=== PATIENT | male | born 1950 | race Caucasian/White ===

== ENCOUNTER 2023-08-03 21:53 | Observation (INO) | payer MEDICARE, BC ==
[2023-08-03] MEDS: Orphenadrine 60 MG/2 ML Inj IV ONE (22:19)
[2023-08-03] MEDS: HYDROmorphone 1 MG/ML Syringe IVPUSH ONE ×2 (22:20→23:57)
[2023-08-03 22:26] LABS: BASOPHILS ABSOLUTE AUTO 0.03 10^3/uL (0.00-0.50); BASOPHILS PERCENT AUTO 0.4 % (0-1); EOSINOPHILS ABSOLUTE AUTO 0.14 10^3/uL (0.00-1.50); EOSINOPHILS PERCENT AUTO 1.9 % (0-6); HEMATOCRIT 38.9 % (42.0-52.0); HEMOGLOBIN 13.1 g/dL (14.0-18.0); IMMATURE GRAN ABSOLUTE AUTO 0.01 10^3/uL (0.00-0.49); IMMATURE GRAN PERCENT AUTO 0.1 % (0.0-4.9); LYMPHOCYTES ABSOLUTE AUTO 3.01 10^3/uL (0.60-5.00); LYMPHOCYTES PERCENT AUTO 41.3 % (24-44); MEAN CORPUSCULAR HEMOGLOBIN 30.8 pg (27.0-32.0); MEAN CORPUSCULAR HGB CONC 33.7 g/dL (32.0-36.0); MEAN CORPUSCULAR VOLUME 91.5 fL (83.0-97.0); MONOCYTES ABSOLUTE AUTO 0.77 10^3/uL (0.00-1.50); MONOCYTES PERCENT AUTO 10.6 % (0-10); NEUTROPHILS ABSOLUTE AUTO 3.33 x10^3/uL (1.80-8.00); NEUTROPHILS PERCENT AUTO 45.7 % (41-71); PLATELET COUNT,PLT 223 10^3/uL (150-400); RED BLOOD CELL COUNT 4.25 x10^6/uL (4.50-6.00); WHITE BLOOD CELL COUNT,WBC 7.3 10^3/uL (4.0-11.0)
[2023-08-03 22:27] LABS: APPEARANCE,URINE CLEAR (CLEAR); BILIRUBIN,URINE NEGATIVE (NEGATIVE); COLOR,URINE LIGHT YELLOW (YELLOW); GLUCOSE,URINE 500 mg/dL (NEGATIVE); KETONES,URINE NEGATIVE (NEGATIVE); LEUKOCYTE ESTERASE,URINE NEGATIVE (NEGATIVE); NITRITE,URINE NEGATIVE (NEGATIVE); OCCULT BLOOD,URINE TRACE-INTACT (NEGATIVE); PH,URINE 5.5 (4.5-8.0); PROTEIN,URINE NEGATIVE (NEGATIVE); UROBILINOGEN,URINE 0.2 EU/dL (0.2-1.0)
[2023-08-03 22:28] LABS: MDMA (ECSTASY), URINE NEGATIVE (NEGATIVE); METHADONE,URINE NEGATIVE (NEGATIVE); METHAMPHETAMINES,URINE NEGATIVE (NEGATIVE); OPIATES,URINE NEGATIVE (NEGATIVE)
[2023-08-03 22:29] LABS: AMPHETAMINES,URINE NEGATIVE (NEGATIVE); BARBITURATES,URINE NEGATIVE (NEGATIVE); BENZODIAZEPINE,URINE NEGATIVE (NEGATIVE); OXYCODONE,URINE NEGATIVE (NEGATIVE); PHENCYCLIDINE,URINE NEGATIVE (NEGATIVE); TCA,URINE NEGATIVE (NEGATIVE)
[2023-08-03 22:38] LABS: ALANINE AMINOTRANSFERASE,ALT 31 U/L (12-78); ALBUMIN 3.2 g/dL (3.4-5.0); ALKALINE PHOSPHATASE 97 U/L (46-116); ASPARTATE AMNIOTRANSFERASE,AST 17 U/L (15-37); BILIRUBIN TOTAL 0.8 mg/dL (0.0-1.0); BLOOD UREA NITROGEN,BUN 15 mg/dL (7-18); CALCIUM 7.8 mg/dL (8.4-10.1); CARBON DIOXIDE,CO2 26 mmol/L (21-32); CHLORIDE,CL 102 mEq/L (98-106); CREATININE 1.1 mg/dL (0.7-1.3); ETHANOL BLOOD MEDICAL 187 mg/dL (0-3); LIPASE 56 U/L (16-77); MAGNESIUM 1.9 mg/dL (1.8-2.4); POTASSIUM,K 3.7 mEq/L (3.5-5.0); PROTEIN TOTAL,TP 6.2 g/dL (6.4-8.2); SODIUM,NA 139 mEq/L (136-145)
[2023-08-03 22:39] LABS: ESTIMATED GFR 70 mL/min (>=60); GLUCOSE RANDOM 365 mg/dL (75-99)
[2023-08-03 22:40] LABS: BACTERIA,URINE NOT SEEN /HPF (NOT SEEN); EPITHELIAL CELLS,URINE NOT SEEN /HPF (NOT SEEN); MUCUS,URINE NOT SEEN /HPF (NOT SEEN); RBC,URINE NOT SEEN /HPF (0-5); WBC,URINE NOT SEEN /HPF (0-5)
[2023-08-03] MEDS: Sodium Chloride 0.9% 1,000 ML IV ONE (23:04)
[2023-08-04] MEDS ORDERED: 50% Dextrose in Water 50 ML Syringe IVPUSH PRN (01:05)
[2023-08-04] MEDS ORDERED: Polyethylene Glycol 3350 Powder 17 GM Packet PO PRN (01:05)
[2023-08-04] MEDS ORDERED: HYDROmorphone 1 MG/ML Syringe IVPUSH PRN (01:05)
[2023-08-04] MEDS ORDERED: Glucagon,Human Recombinant 1 MG Vial IM PRN (01:05)
[2023-08-04] MEDS ORDERED: Ondansetron 4 MG/2 ML SDV IV PRN (01:05)
[2023-08-04] MEDS ORDERED: Docusate Sodium 100 MG Cap PO PRN (01:05)
[2023-08-04] MEDS ORDERED: Ondansetron 4 MG Tab.DIS PO PRN (01:05)
[2023-08-04] MEDS: Sodium Chloride 0.9% 1,000 ML IV SCH (01:46)
[2023-08-04 07:43] LABS: BLOOD UREA NITROGEN,BUN 11 mg/dL (7-18); CALCIUM 7.8 mg/dL (8.4-10.1); CARBON DIOXIDE,CO2 26 mmol/L (21-32); CHLORIDE,CL 107 mEq/L (98-106); CREATININE 0.9 mg/dL (0.7-1.3); GLUCOSE RANDOM 233 mg/dL (75-99); MAGNESIUM 1.8 mg/dL (1.8-2.4); POTASSIUM,K 3.6 mEq/L (3.5-5.0); SODIUM,NA 144 mEq/L (136-145)
[2023-08-04 07:47] LABS: BASOPHILS ABSOLUTE AUTO 0.02 10^3/uL (0.00-0.50); BASOPHILS PERCENT AUTO 0.3 % (0-1); EOSINOPHILS ABSOLUTE AUTO 0.23 10^3/uL (0.00-1.50); EOSINOPHILS PERCENT AUTO 3.2 % (0-6); HEMATOCRIT 37.5 % (42.0-52.0); HEMOGLOBIN 12.5 g/dL (14.0-18.0); IMMATURE GRAN ABSOLUTE AUTO 0.01 10^3/uL (0.00-0.49); IMMATURE GRAN PERCENT AUTO 0.1 % (0.0-4.9); LYMPHOCYTES ABSOLUTE AUTO 2.65 10^3/uL (0.60-5.00); LYMPHOCYTES PERCENT AUTO 36.4 % (24-44); MEAN CORPUSCULAR HEMOGLOBIN 30.6 pg (27.0-32.0); MEAN CORPUSCULAR HGB CONC 33.3 g/dL (32.0-36.0); MEAN CORPUSCULAR VOLUME 91.9 fL (83.0-97.0); MONOCYTES ABSOLUTE AUTO 0.64 10^3/uL (0.00-1.50); MONOCYTES PERCENT AUTO 8.8 % (0-10); NEUTROPHILS ABSOLUTE AUTO 3.73 x10^3/uL (1.80-8.00); NEUTROPHILS PERCENT AUTO 51.2 % (41-71); PLATELET COUNT,PLT 226 10^3/uL (150-400); RED BLOOD CELL COUNT 4.08 x10^6/uL (4.50-6.00); WHITE BLOOD CELL COUNT,WBC 7.3 10^3/uL (4.0-11.0)
[2023-08-04 08:04] LABS: ESTIMATED GFR 89 mL/min (>=60)
[2023-08-04] MEDS: Levothyroxine 125 MCG Tab PO SCH (08:14)
[2023-08-04] MEDS: Cyclobenzaprine 10 MG Tab PO PRN (08:14)
[2023-08-04] MEDS: Lisinopril 10 MG Tab PO SCH (08:14)
[2023-08-04] MEDS: Gabapentin 300 MG Cap PO SCH (08:15)
[2023-08-04] MEDS: Insulin Lispro 100 Units/ML 3 ML Vial SUBCUT SCH (08:15)
[2023-08-04] MEDS: Insulin Glarg,Human.Rec.Analog 100 Unit/ML 10 ML Vial SUBCUT SCH (08:19)
[2023-08-04] MEDS: Iopamidol 755 Mg/ML 100 ML Bottle IVPUSH ONE (10:18)
[2023-08-04] MEDS: Acetaminophen/HYDROcodone 325-5 MG Tab PO PRN (13:05)
[2023-08-04] MEDS: Take Home: Cyclobenzaprine 10 MG Tab, 4 Tab Pack PO ONE (13:12)
[2023-08-04] MEDS: Take Home: Acetaminophen/HYDROcodone 325-5 MG, 2 Tab Pack PO ONE (13:13)
[2023-08-04] MEDS ORDERED: atorvaSTATin 10 MG Tab PO SCH (20:00)
== END 2023-08-04 13:30 | disposition home or self-care (01) ==
LOC: CC.ED 21:53 → UNDOADMOB 08-04 00:22 → CC.MS 08-04 00:22 → UNDODISOB 08-04 13:30
PROVIDERS: ADMIT Nurse Practitioner; ATTEND Nurse Practitioner
DX: S12.500A Unspecified displaced fracture of sixth cervical vertebra, initial encounter for closed fracture (principal); S12.600A Unspecified displaced fracture of seventh cervical vertebra, initial encounter for closed fracture; R73.9 Hyperglycemia, unspecified; M54.2 Cervicalgia; Z79.890 Hormone replacement therapy; Z79.899 Other long term (current) drug therapy; Z79.4 Long term (current) use of insulin; W55.12XA Struck by horse, initial encounter; Y93.52 Activity, horseback riding
CPT/HCPCS: 36415; 70450; 70498; 72125; 73030; 73200; 80048; 80053; 80305; 80307; 81001; 83690; 83735; 85025; 96361; 96374; 96375; 96376; 99285; A9270; J1170; J1815; J2360; J3360; J7030; Q9967; 99236; G0378